=== PATIENT | female | born 1990 | race Hispanic/Latino ===

== ENCOUNTER 2018-06-29 14:55 | Inpatient (IN) | payer MEDICAID, OTHER ==
[~2018-06-29] VITALS: Ht 160 cm; Wt 88.7 kg
[~2018-06-29 14:55] MED LIST: ADVAIR IH; CIPR-278 PO; METR500T PO; SULFA PO
[2018-06-29] MEDS ORDERED: METHYLPREDNISOLONE SOD SUCC 125MG/2ML VIAL ONE (15:22)
[2018-06-29] MEDS ORDERED: IPRATROPIUM/ALBUTEROL SULFATE 3 ML SOLUTION IH ONE ×3 (15:26→16:31)
[2018-06-29 16:24] LABS: APPEARANCE,URINE Clear (CLEAR); BILIRUBIN,URINE Negative (NEGATIVE); COLOR,URINE Yellow (YELLOW); GLUCOSE, URINE (UA) Negative (NEGATIVE); KETONES,URINE Negative (NEGATIVE); LEUKOCYTE ESTERASE ,URINE Large (NEGATIVE); NITRATE,URINE Positive (NEGATIVE); OCCULT BLOOD,URINE Moderate (NEGATIVE); PH,URINE 6.5 (5.0-8.0); PROTEIN,URINE Trace (NEGATIVE); UROBILINOGEN,URINE 0.2 mg/dL (0.2-1.0)
[2018-06-29 16:41] LABS: BACTERIA,URINE Few /HPF (None Seen); WBC,URINE >100 /HPF (0-1)
[2018-06-29 16:42] LABS: SQUAMOUS EPITHELIAL CELL,UR 0-2 /HPF (0-2)
[2018-06-29] MEDS ORDERED: CEFTRIAXONE SODIUM 1 GM ONE (17:06)
[2018-06-29] MEDS ORDERED: SODIUM CHLORIDE 0.9% 1000ML 1,000 ML IV ONE (17:07)
[2018-06-29 17:20] LABS: BASOPHILS % (AUTO) 0.6 % (0.0-5.0); EOSINOPHILS % (AUTO) 2.2 % (0.0-8.0); HEMATOCRIT 38.7 % (36-48); LYMPHOCYTES % (AUTO) 17.4 % (21.0-51.0); MEAN CORPUSCULAR HEMOGLOBIN 27.6 pg (27.0-33.0); MEAN CORPUSCULAR HGB CONC 33.3 g/dL (32.0-36.0); MEAN CORPUSCULAR VOLUME 82.8 fL (79-99); NEUTROPHILS % (AUTO) 75.8 % (40.0-77.0); PLATELET COUNT (AUTO) 260 K/uL (130-400); RED BLOOD CELL COUNT(AUTO) 4.67 MIL/uL (4.00-5.50); RED CELL DISTRIBUTION WIDTH 14.1 % (11.0-15.5); WHITE BLOOD COUNT (AUTO) 8.8 K/uL (4.8-10.8)
[2018-06-29 17:41] LABS: CREATININE 0.9 mg/dL (0.5-1.5); POTASSIUM 3.7 mmol/L (3.5-5.1)
[2018-06-29 17:46] LABS: ALBUMIN 3.7 g/dL (3.5-5.0); BILIRUBIN,TOTAL 0.4 mg/dL (0.2-1.0); TOTAL PROTEIN, SERUM 8.2 g/dL (6.0-8.3)
[2018-06-29] MEDS: SODIUM CHLORIDE 0.9% 1000ML 1,000 ML IV SCH (18:34)
[2018-06-29] MEDS ORDERED: ACETAMINOPHEN 325 MG TAB PO PRN ×2 (18:45)
[2018-06-29] MEDS: LEVOFLOXACIN 500 MG/D5W 100 ML 100 ML IV SCH (18:45)
[2018-06-29] MEDS ORDERED: ONDANSETRON HCL 4 MG/2 ML VIAL IV PRN (18:45)
[2018-06-29] MEDS ORDERED: MORPHINE SULFATE 4 MG/1ML SYG IV PRN (19:00)
[2018-06-29] MEDS: ZOSYN 3.375GM+NS 50ML 50 ML IV SCH (20:00)
[2018-06-29] MEDS ORDERED: LEVOFLOXACIN 500 MG/D5W 100 ML 100 ML ONE (20:05)
[2018-06-29] MEDS ORDERED: FAMOTIDINE 20MG TAB 20 MG TAB ONE (20:05)
[2018-06-29] MEDS ORDERED: POTASSIUM CHLORIDE 20MEQ/100ML 100 ML IV PRN (20:30)
[2018-06-29] MEDS ORDERED: POTASSIUM CHLORIDE 20 MEQ ERTAB PO PRN (20:30)
[2018-06-29] MEDS ORDERED: POTASSIUM CHLORIDE 10% ELIXIR 20 MEQ/15 ML UDCUP PO PRN (20:30)
[2018-06-29] MEDS ORDERED: LIDOCAINE HCL-MPF 1% 2ML VIAL IVP PRN (20:30)
[2018-06-29] MEDS ORDERED: MAGNESIUM 2GM PREMIX 50ML 50 ML IV PRN (20:30)
[2018-06-29] MEDS: FAMOTIDINE 20MG TAB 20 MG TAB PO SCH (21:00)
[2018-06-29] MEDS ORDERED: ZOSYN 3.375GM+NS 50ML 50 ML IV ONE (21:21)
[2018-06-29] MEDS ORDERED: ACETAMINOPHEN 325 MG TAB ONE (21:42)
[2018-06-29] MEDS ORDERED: SODIUM CHLORIDE 3% FOR INHALATION 4 ML/AMP VIAL.NEB IH ONE (21:43)
[2018-06-29] MEDS: IPRATROPIUM/ALBUTEROL SULFATE 3 ML SOLUTION IH SCH (21:58)
[2018-06-29 22:35] VITALS: BP 145/90
--- NOTE | 2018-06-29 22:50 | NUR ---
Dr. Harris was paged and consulted,he said to call tomorrow in the morning .Magnesium level is 1.60 and covered with 2 gram IV as per protocol .
[2018-06-29] MEDS: METHYLPREDNISOLONE SOD SUCC 40MG/ML 1ML IVP SCH (23:40)
[2018-06-30] MEDS: MORPHINE SULFATE 2 MG/ML 1ML SYG IV PRN (00:03)
[2018-06-30] MEDS: IPRATROPIUM/ALBUTEROL SULFATE 3 ML SOLUTION IH SCH ×6 (01:18→21:52)
[2018-06-30] MEDS: SODIUM CHLORIDE 0.9% 1000ML 1,000 ML IV SCH ×3 (02:34→21:31)
[2018-06-30 04:00] VITALS: BP 124/67
[2018-06-30] MEDS: ZOSYN 3.375GM+NS 50ML 50 ML IV SCH ×3 (05:13→20:34)
[2018-06-30 05:28] LABS: HEMATOCRIT 38.2 % (36-48); MEAN CORPUSCULAR HEMOGLOBIN 28.3 pg (27.0-33.0); MEAN CORPUSCULAR HGB CONC 33.8 g/dL (32.0-36.0); MEAN CORPUSCULAR VOLUME 83.5 fL (79-99); PLATELET COUNT (AUTO) 259 K/uL (130-400); RED BLOOD CELL COUNT(AUTO) 4.57 MIL/uL (4.00-5.50); RED CELL DISTRIBUTION WIDTH 14.2 % (11.0-15.5); WHITE BLOOD COUNT (AUTO) 10.5 K/uL (4.8-10.8)
[2018-06-30 06:00] LABS: ALBUMIN 3.6 g/dL (3.5-5.0); BILIRUBIN,TOTAL 0.2 mg/dL (0.2-1.0); CREATININE 0.8 mg/dL (0.5-1.5); MAGNESIUM 2.3 mg/dL (1.80-2.40); TOTAL PROTEIN, SERUM 8.4 g/dL (6.0-8.3)
[2018-06-30 06:30] LABS: BAND NEUTROPHILS % (MANUAL) 11 % (0-2); LYMPHOCYTES % (MANUAL) 12 % (22-44); REACTIVE LYMPHOCYTES 4 % (0-0); SEGMENTED NEUTROPHILS % 73 % (40-70)
[2018-06-30 06:32] LABS: MAN.DIFF COMMENT-IMPRESSION MANUAL DIFFERENTIAL; PLATELET MORPHOLOGY COMMENT ADEQUATE
[2018-06-30] MEDS: METHYLPREDNISOLONE SOD SUCC 40MG/ML 1ML IVP SCH ×2 (06:42→15:50)
--- NOTE | 2018-06-30 07:40 | NUR ---
Report given to incoming NOD using SBAR all questions answered.Pending to consult Dr. Harris.
[2018-06-30 08:00] VITALS: BP 137/75
[2018-06-30] MEDS: ENOXAPARIN SODIUM 30 MG/0.3 ML SQ SCH (09:00)
[2018-06-30] MEDS: FAMOTIDINE 20MG TAB 20 MG TAB PO SCH ×2 (09:12→20:33)
[2018-06-30 12:00] VITALS: BP 140/66
[2018-06-30 15:52] VITALS: BP 140/82
[2018-06-30] MEDS ORDERED: IOHEXOL 350 MG/ML 100ML INFUS..BTL IV ONE (16:51)
[2018-06-30] MEDS: BENZONATATE 100 MG CAPSULE PO PRN (16:57)
--- NOTE | 2018-06-30 18:04 | NUR ---
INITIAL: Met with pt this afternoon to discuss dcp. Pt states that prior to admission was living w her children. She mentions that her aunt is currently taking care of them. Prior to admission pt was independent w ambulation and ADLs. States was using her sons nebulizer. Pt feels safe and comfortable to return [place] at [place]. Provided pt w low income packet. Discussed $4 medication discount program avail @ [employer] or [employer]. Discussed [facility] and [place] [facility] for medical needs. Addendum: 07/01/18 at 1806 by HILDA OLGUIN Amended: Links added.
[2018-06-30] MEDS: LEVOFLOXACIN 500 MG/D5W 100 ML 100 ML IV SCH (18:40)
[2018-06-30 20:00] VITALS: BP 151/92
[2018-07-01] VITALS: BP 114/66
[2018-07-01] MEDS: METHYLPREDNISOLONE SOD SUCC 40MG/ML 1ML IVP SCH ×3 (01:15→14:18)
[2018-07-01] MEDS: IPRATROPIUM/ALBUTEROL SULFATE 3 ML SOLUTION IH SCH ×6 (02:18→21:41)
[2018-07-01 04:00] VITALS: BP 127/82
[2018-07-01] MEDS: ZOSYN 3.375GM+NS 50ML 50 ML IV SCH ×3 (04:53→20:13)
[2018-07-01] MEDS: SODIUM CHLORIDE 0.9% 1000ML 1,000 ML IV SCH ×2 (06:42→14:22)
[2018-07-01] MEDS: BENZONATATE 100 MG CAPSULE PO PRN (06:46)
[2018-07-01 07:30] VITALS: BP 138/101
[2018-07-01 07:44] LABS: HEMATOCRIT 37.8 % (36-48); LYMPHOCYTES % (AUTO) 10.1 % (21.0-51.0); MEAN CORPUSCULAR HEMOGLOBIN 27.3 pg (27.0-33.0); MEAN CORPUSCULAR HGB CONC 32.9 g/dL (32.0-36.0); MEAN CORPUSCULAR VOLUME 83.2 fL (79-99); MONOCYTES % (AUTO) 2.7 % (3.0-13.0); NEUTROPHILS % (AUTO) 87.2 % (40.0-77.0); PLATELET COUNT (AUTO) 304 K/uL (130-400); RED BLOOD CELL COUNT(AUTO) 4.54 MIL/uL (4.00-5.50); RED CELL DISTRIBUTION WIDTH 14.5 % (11.0-15.5); WHITE BLOOD COUNT (AUTO) 21.8 K/uL (4.8-10.8)
[2018-07-01 08:16] LABS: CREATININE 0.9 mg/dL (0.5-1.5); POTASSIUM 3.8 mmol/L (3.5-5.1)
[2018-07-01] MEDS: FAMOTIDINE 20MG TAB 20 MG TAB PO SCH ×2 (08:30→21:42)
[2018-07-01] MEDS: ENOXAPARIN SODIUM 30 MG/0.3 ML SQ SCH (08:31)
[2018-07-01] MEDS: FLUTICASONE PROPIONATE 50MCG/SPRAY 16 GM BOTTLE EN SCH (08:32)
[2018-07-01] MEDS: MORPHINE SULFATE 2 MG/ML 1ML SYG IV PRN ×2 (08:42→20:14)
[2018-07-01 11:00] VITALS: BP 125/41
[2018-07-01 15:30] VITALS: BP 110/61
--- NOTE | 2018-07-01 17:58 | NUR ---
PATIENT ROUND PATIENT AWAKE AND ALERT, SITTING UP IN BED VISITING WITH FRIENDS. PATIENT HAS NO COMPLAINTS OF PAIN AT THIS TIME. VS STABLE, AFEBRILE. IV FLUIDS RUNNING AT THIS TIME VIA PUMP TO RIGHT AC, IV SITE INTACT-NO REDNESS, NO DISCOMFORT REPORTED. Addendum: 07/01/18 at 1800 by TERRI GEIGER RN RN Amended: Links added.
[2018-07-01] MEDS: LEVOFLOXACIN 500 MG/D5W 100 ML 100 ML IV SCH (18:54)
[2018-07-01 20:00] VITALS: BP 139/106
[2018-07-02] VITALS: BP 117/68
[2018-07-02] MEDS: IPRATROPIUM/ALBUTEROL SULFATE 3 ML SOLUTION IH SCH ×6 (02:05→21:38)
[2018-07-02] MEDS: SODIUM CHLORIDE 0.9% 1000ML 1,000 ML IV SCH (03:00)
[2018-07-02 04:00] VITALS: BP 140/81
[2018-07-02] MEDS: ZOSYN 3.375GM+NS 50ML 50 ML IV SCH ×3 (04:55→22:55)
[2018-07-02 05:28] LABS: BASOPHILS % (AUTO) 0.1 % (0.0-5.0); HEMATOCRIT 36.6 % (36-48); LYMPHOCYTES % (AUTO) 15.6 % (21.0-51.0); MEAN CORPUSCULAR HEMOGLOBIN 27.9 pg (27.0-33.0); MEAN CORPUSCULAR HGB CONC 33.3 g/dL (32.0-36.0); MEAN CORPUSCULAR VOLUME 83.8 fL (79-99); MONOCYTES % (AUTO) 7.8 % (3.0-13.0); NEUTROPHILS % (AUTO) 76.5 % (40.0-77.0); PLATELET COUNT (AUTO) 276 K/uL (130-400); RED BLOOD CELL COUNT(AUTO) 4.37 MIL/uL (4.00-5.50); RED CELL DISTRIBUTION WIDTH 14.7 % (11.0-15.5); WHITE BLOOD COUNT (AUTO) 19.6 K/uL (4.8-10.8)
[2018-07-02 05:37] LABS: CREATININE 0.8 mg/dL (0.5-1.5); POTASSIUM 3.9 mmol/L (3.5-5.1)
[2018-07-02 07:30] VITALS: BP 135/74
[2018-07-02] MEDS: ENOXAPARIN SODIUM 30 MG/0.3 ML SQ SCH (09:00)
[2018-07-02 11:00] VITALS: BP 142/96
[2018-07-02] MEDS: FLUTICASONE PROPIONATE 50MCG/SPRAY 16 GM BOTTLE EN SCH (12:01)
[2018-07-02] MEDS: FAMOTIDINE 20MG TAB 20 MG TAB PO SCH ×2 (12:01→22:55)
[2018-07-02] MEDS: PREDNISONE 10 MG TABLET PO SCH (12:01)
[2018-07-02] MEDS: GUAIFENESIN-CODEINE 5 ML SYRUP PO PRN ×2 (14:28→22:55)
[2018-07-02 16:00] VITALS: BP 138/92
[2018-07-02] MEDS: LEVOFLOXACIN 500 MG/D5W 100 ML 100 ML IV SCH (17:09)
[2018-07-02 20:00] VITALS: BP 118/55
[2018-07-03] VITALS: BP 145/71
[2018-07-03] MEDS: IPRATROPIUM/ALBUTEROL SULFATE 3 ML SOLUTION IH SCH ×4 (01:33→13:14)
[2018-07-03 04:00] VITALS: BP 112/70
[2018-07-03 05:38] LABS: BASOPHILS % (AUTO) 0.3 % (0.0-5.0); EOSINOPHILS % (AUTO) 0.7 % (0.0-8.0); LYMPHOCYTES % (AUTO) 33.9 % (21.0-51.0); MEAN CORPUSCULAR HEMOGLOBIN 27.7 pg (27.0-33.0); MEAN CORPUSCULAR HGB CONC 33.1 g/dL (32.0-36.0); MEAN CORPUSCULAR VOLUME 83.7 fL (79-99); MONOCYTES % (AUTO) 6.4 % (3.0-13.0); NEUTROPHILS % (AUTO) 58.7 % (40.0-77.0); NUCLEATED RED BLOOD CELLS 0.1 % (0.0-0.19); PLATELET COUNT (AUTO) 277 K/uL (130-400); RED BLOOD CELL COUNT(AUTO) 4.42 MIL/uL (4.00-5.50); RED CELL DISTRIBUTION WIDTH 14.5 % (11.0-15.5); WHITE BLOOD COUNT (AUTO) 13.7 K/uL (4.8-10.8)
[2018-07-03] MEDS: ZOSYN 3.375GM+NS 50ML 50 ML IV SCH (06:14)
[2018-07-03 08:00] VITALS: BP 131/68
[2018-07-03] MEDS: FAMOTIDINE 20MG TAB 20 MG TAB PO SCH (08:39)
[2018-07-03] MEDS: FLUTICASONE PROPIONATE 50MCG/SPRAY 16 GM BOTTLE EN SCH (08:39)
[2018-07-03] MEDS: PREDNISONE 10 MG TABLET PO SCH (08:40)
[2018-07-03] MEDS: GUAIFENESIN-CODEINE 5 ML SYRUP PO PRN (08:40)
[2018-07-03] MEDS: ENOXAPARIN SODIUM 30 MG/0.3 ML SQ SCH (08:41)
[2018-07-03] MEDS ORDERED: CEPH500B PO (09:20)
[2018-07-03] MEDS ORDERED: PRED20TA3 PO (09:20)
[2018-07-03] MEDS ORDERED: ALBU6.7H IH (09:20)
[2018-07-03 12:00] VITALS: BP 126/74
--- NOTE | 2018-07-03 13:03 | NUR ---
DISCHARGE INSTRUCTIONS WERE GIVEN TO THE PATIENT ALONG WITH FOLLOW-UP RECOMMENDATION AND HER PRESCRIPTION AND SHE VERBALIZED UNDERSTANDING. IV ACCESS WAS REMOVED WITHOUT COMPLICATION. PATIENT LEFT THE UNIT IN STABLE CONDITION VIA W/C.
== END 2018-07-03 13:00 | disposition home or self-care (01) | DRG 872 ==
LOC: EDH 14:55 → EDHIP 14:56 → UNDOADMIN 18:33 → EDHIP 18:33 → 3CH 22:35 → EDHIP 22:35
PROVIDERS: ADMIT Internal Medicine; ATTEND Internal Medicine
DX: A41.9 Sepsis, unspecified organism (principal); J45.901 Unspecified asthma with (acute) exacerbation; N13.6 Pyonephrosis; R65.20 Severe sepsis without septic shock; E66.9 Obesity, unspecified; E83.42 Hypomagnesemia; E03.9 Hypothyroidism, unspecified; F17.200 Nicotine dependence, unspecified, uncomplicated; B96.20 Unspecified Escherichia coli [E. coli] as the cause of diseases classified elsewhere; Z82.0 Family history of epilepsy and other diseases of the nervous system; Z82.3 Family history of stroke; Z82.49 Family history of ischemic heart disease and other diseases of the circulatory system; Z82.5 Family history of asthma and other chronic lower respiratory diseases; Z83.3 Family history of diabetes mellitus; Z87.442 Personal history of urinary calculi; Z98.51 Tubal ligation status; Z79.899 Other long term (current) drug therapy; Z68.34 Body mass index [BMI] 34.0-34.9, adult
CPT/HCPCS: 36415; 71045; 71046; 74176; 74400; 80048; 80053; 81001; 83605; 83735; 85025; 87040; 87071; 87077; 87088; 87186; 87205; 87486; 87581; 87633; 87798; 87804; 93005; 94640; 94664; 99291; G0378; J0696; J1650; J1956; J2270; J2543; J2920; J2930; J3475; J7030; J7512; Q9967